=== PATIENT | male | born 1930 | race Caucasian/White ===

== ENCOUNTER → 2017-06-23 | Day surgery (SDC) | payer MEDICARE, OTHER ==
[2017-06-21 14:58] LABS: BASOPHILS % 0.4 % (0.0-1.0); EOSINOPHILS # (AUTO) 0.1 (0.0-0.4); EOSINOPHILS % 1.2 % (0.0-6.0); HEMOGLOBIN 15.6 g/dL (14.0-18.0); LYMPHOCYTES # (AUTO) 1.6 (1.0-3.2); LYMPHOCYTES % 15.3 % (18.0-39.1); MEAN CORPUSCULAR HEMOGLOBIN 31.1 pg (28-32); MEAN CORPUSCULAR HGB CONC 34.7 g/dL (31-35); MEAN CORPUSCULAR VOLUME 89.8 fL (81-99); MONOCYTES # (AUTO) 0.7 (0.2-0.8); MONOCYTES % 6.3 % (4.4-11.3); NEUTROPHILS # (AUTO) 8.2 (2.1-6.9); NEUTROPHILS % 76.3 % (38.7-80.0); PLATELET COUNT 292 x10e3/uL (140-360); RED BLOOD COUNT 5.01 x10e6/uL (4.3-5.7); RED CELL DISTRIBUTION WIDTH 13.5 % (11.7-14.4)
[~2017-06-23] MED LIST: ASPIRIN325 MG PO; HYZAAR 50-12.51 EACH PO; LIDOCAINE HCL 2% LOCAL INJ 5 ML SDV VIAL INJ ONE; MULTIVITAMINS1 EAC7 PO; OMEPRAZOLE40 MG PO; PROPOFOL IV EMULSION 10 MG/ML 50 ML VIAL ONE; VITAMIN B-121000 MCG IM; VITAMIN B-650 MG PO
--- OUTSIDE RECORDS SUMMARY | 2017-06-23 07:44 | XMS REPORT ---
[facility] Address Unknown Phone Unavailable Care Team Providers Care [employer] Name Role Phone GEE PRICE Unavailable Unavailable Problems This patient has no known problems. Allergies, Adverse Reactions, Alerts This patient has no known allergies or adverse reactions. Medications This patient has no known medications. Results Test Description Test Time Test Comments Text Results Atomic Results Result Comments CT LUMBAR SPINE WO [place] [address] Patient Name: JARRELL LANGLEY MR #: [id number] : 1930 Age/Sex: 86/M Req # : [id number] Adm Physician: Ordered by: GEE PRICE MD Report #: [id number] Location: CT Room/Bed: Procedure: [id number] CT/CT LUMBAR SPINE WO Exam Date: 01/18/17 Exam Time : 1305 REPORT STATUS: Signed History: Low back pain radiating to the right leg Comparison studies: None Technique: Axial images were obtained from T11 through the sacrum. Coronal and sagittal images reconstructed from the axial data. Intravenous contrast: None Findings: Number of non-rib bearing vertebral bodies: 5 Alignment: Normal lordosis. S-shaped scoliosis with levo curvature centered at L1-L2 and dextrocurvature centered at L4-L5. Soft tissues: No acute abnormalities. Atherosclerotic calcifications of the abdominal aorta and its branches. Paraspinal muscles: Mild fatty infiltration secondary to atrophy Vertebrae : No fractures, infection or neoplasm. Degenerative changes: L1-L2 : Severe disc degeneration with obliterated intervertebral space, sclerotic changes and endplate irregularities towards the right side. Asymmetric right disc bulge and mild facet hypertrophy results in mild canal stenosis and severe right foraminal narrowing L2-L3: Disc degeneration with decreased intervertebral space. L3 superior endplate with adjacent sclerotic changes. Asymmetric right disc moderate right and mild left facet hypertrophy results in moderate canal stenosis and severe right foraminal narrowing L3-L4: Disc degeneration with decreased intervertebral space and ex vacuo disc phenomenon. Diffuse disc bulge, moderate bilateral facet hypertrophy and ligamentum flavum thickening results in moderate canal stenosis, obliteration of the left subarticular recesses and mild bilateral foraminal narrowing. L4-L5: Disc degeneration with decreased intervertebral space with endplate sclerosis towards the left. Asymmetric left disc bulge, mild right and severe left facet hypertrophy results in moderate canal stenosis and severe left foraminal narrowing L5-S1: Disc degeneration with decreased intervertebral space and sclerotic changes towards the left side. Diffuse disc bulge, mild right and moderate left facet hypertrophy results in mild canal stenosis and severe left foraminal narrowing. Sacroiliac joints: Degenerative changes of the SI joint. By decreased joint space sclerotic changes and small marginal osteophytes IMPRESSION: 1. No acute lumbar abnormality. 2. Severe foraminal narrowing at L1-L2 and L2-L3 on the right and L4-L5 and L5-S1 on the left secondary to S-shaped scoliosis and moderate to severe degenerative changes as detailed above. 3. Moderate multilevel canal stenosis from L2 through L5 secondary to degenerative changes. Mild to moderate multilevel foraminal narrowing as detailed above. 4. Other degenerative changes as described. Signed by: DR Reese Hassan M.D. on 01/19/2017 12:50 PM Dictated By: REESE ROBLES MD 1250 Transcribed By: BERNABE on 01/19/17 1250 COPY TO: GEE PRICE MD
== END | disposition home or self-care (01) ==
LOC: OR 07:42
PROVIDERS: ATTEND Internal Medicine Gastroenterology
DX: K22.70 Barrett's esophagus without dysplasia (principal); K31.7 Polyp of stomach and duodenum; K29.70 Gastritis, unspecified, without bleeding; K44.9 Diaphragmatic hernia without obstruction or gangrene; I10 Essential (primary) hypertension; Z01.810 Encounter for preprocedural cardiovascular examination; Z01.812 Encounter for preprocedural laboratory examination; Z79.82 Long term (current) use of aspirin; Z85.46 Personal history of malignant neoplasm of prostate
CPT/HCPCS: 36415; 43239; 85025; 93005; J2001

== ENCOUNTER 2018-02-12 17:10 | Emergency (ER) | payer MEDICARE, OTHER ==
[~2018-02-12] VITALS: Ht 157.5 cm; Wt 45.8 kg
[~2018-02-12 17:10] MED LIST changes: -LIDOCAINE HCL 2% LOCAL INJ 5 ML SDV VIAL INJ ONE; -PROPOFOL IV EMULSION 10 MG/ML 50 ML VIAL ONE
[2018-02-12] MEDS ORDERED: LEXAPRO10 MG PO (17:52)
[2018-02-12] MEDS ORDERED: NAMENDA10 MG (17:52)
[2018-02-12] MEDS ORDERED: MELOXICAM7.5 MG PO (17:54)
[2018-02-12] MEDS ORDERED: BENAZEPRIL HCL10 MG PO (17:55)
[2018-02-12] MEDS ORDERED: LIOTHYRONINE SO5 MCG (17:56)
[2018-02-12] MEDS ORDERED: POTASSIUM CHLORIDE 20 MEQ TAB CR PO STA (18:39)
--- NOTE | 2018-02-12 18:54 | Diagnostic Imaging Report ---
History:Fall, confusion Comparison studies:None Technique: Axial images were obtained from the skull base to the vertex. Coronal and sagittal images reconstructed from the axial data. Intravenous contrast: None Dose modulation, iterative reconstruction, and/or weight based adjustment of the mA/kV was utilized to reduce the radiation dose to as low as reasonably achievable. Findings: Scalp/skull: No abnormalities. 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 No fluid collections. Brain sulci: Mildly prominent. Ventricles: Mild compensatory dilatation. No hydrocephalus. Parenchyma: Scattered hypodensities in the supratentorial white matter are small vessel ischemic changes. 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 No masses, hemorrhage, acute or chronic cortical vascular insults. Sellar/suprasellar region: No abnormalities. Craniocervical junction: Patent foramen magnum. No Chiari one malformation. Incidental findings: Atherosclerotic calcifications in the carotid siphons . Impression: No acute abnormalities. Chronic findings: 1. Mild generalized volume loss. 2. Mild supratentorial white matter small vessel ischemic changes. Signed by: DR Reese Hassan M.D. on 02/12/2018 6:50 PM
== END 2018-02-12 19:50 | disposition home or self-care (01) ==
LOC: FSED 17:10
DX: S00.83XA Contusion of other part of head, initial encounter (principal); W19.XXXA Unspecified fall, initial encounter; F03.90 Unspecified dementia, unspecified severity, without behavioral disturbance, psychotic disturbance, mood disturbance, and anxiety; R73.9 Hyperglycemia, unspecified; K52.9 Noninfective gastroenteritis and colitis, unspecified; E87.6 Hypokalemia; I10 Essential (primary) hypertension; E03.9 Hypothyroidism, unspecified
CPT/HCPCS: 70450; 81003; 87086; 99283